=== PATIENT | male | born 1970 | race Caucasian/White ===

== ENCOUNTER 2018-09-20 10:13 | Emergency (ER) | payer MEDICAID ==
[~2018-09-20] VITALS: Ht 172.7 cm; Wt 73.0 kg
[2018-09-20] MEDS ORDERED: ACYC200C PO (10:49)
[2018-09-20] MEDS ORDERED: TEST5GEL TD (10:49)
[2018-09-20] MEDS ORDERED: DOLU1TAB PO (10:49)
[2018-09-20] MEDS ORDERED: SERT50TA12 PO (10:49)
[2018-09-20] MEDS ORDERED: AMYL1CAP61 PO (10:49)
[2018-09-20 14:44] VITALS: BP 129/83
== END 2018-09-20 14:57 | disposition home or self-care (01) ==
LOC: EMS 10:15
DX: Z13.83 Encounter for screening for respiratory disorder NEC (principal); F32.9 Major depressive disorder, single episode, unspecified; F15.90 Other stimulant use, unspecified, uncomplicated; Z79.899 Other long term (current) drug therapy